=== PATIENT | male | born 1945 | race Caucasian/White ===

== ENCOUNTER 2020-02-24 06:28 | Inpatient (IN) | payer MEDICARE, BC ==
[~2020-02-24] VITALS: Ht 175.3 cm; Wt 83.3 kg
--- NOTE | 2020-02-24 06:35 | NUR ---
[facility] CALLED @ 0635 Addendum: 02/24/20 at 0738 by KAHLIL PTS GLASSES AND OTHER BELONGINS GIVEN TO PTS .
[2020-02-24] MEDS ORDERED: ATORVASTATIN 80 MG TABLET PO STA (06:42)
[2020-02-24] MEDS ORDERED: ASCO500T56 PO (06:46)
[2020-02-24] MEDS ORDERED: LISI-167 PO (06:46)
[2020-02-24] MEDS ORDERED: FISH OIL (06:46)
[2020-02-24] MEDS ORDERED: ASPI-515 PO (06:46)
[2020-02-24] MEDS ORDERED: ATOR20TA PO (06:46)
[2020-02-24] MEDS ORDERED: ERGO500017 PO (06:46)
[2020-02-24 06:51] LABS: MEAN CORPUSCULAR HEMOGLOBIN 31.9 pg (27.5-34.5)
[2020-02-24 06:55] LABS: MEAN CORPUSCULAR HGB CONC 32.8 g/dL (33.2-36.2); MEAN PLATELET VOLUME 8.8 fL (7.4-10.4); PLATELET COUNT 198 x10^3/uL (130-400); RED BLOOD COUNT 3.95 x10^6/uL (4.38-5.82)
--- NOTE | 2020-02-24 06:55 | NUR ---
REPORT GIVEN TO MARITZA WASHINGTON
--- NOTE | 2020-02-24 06:57 | NUR ---
REPORT RECEIVED, CARE ASSUMED. PT SITTING UP ON GURNEY, NO ACUTE DISTRESS NOTED. PAIN 2/10 "WITH DEEP INHALATION" SB PER MONITOR. AUTO BP AND PULSE OX IN PLACE. PTS TRESA [phone] MACKAY AT BEDSIDE TO [place] PT.
[2020-02-24] MEDS ORDERED: SODIUM CHLORIDE FLUSH 10ML SYR IVF ONE (07:00)
[2020-02-24] MEDS ORDERED: PLEASE ENTER ALLERGIES MC SCH (07:00)
[2020-02-24 07:03] LABS: ALBUMIN 3.1 g/dL (3.4-5.0); ANION GAP 4 mmol/L (5-15); CALCIUM 7.9 mg/dL (8.5-10.1); CHLORIDE 106 mmol/L (98-107); CREATININE 0.82 mg/dL (0.7-1.3)
[2020-02-24] MEDS ORDERED: LIDOCAINE 2%, 20ML ONE (07:11)
[2020-02-24] MEDS ORDERED: MIDAZOLAM 1 MG/ML, 5ML ONE (07:11)
[2020-02-24] MEDS ORDERED: BIVALIRUDIN 250 MG ONE (07:11)
[2020-02-24] MEDS ORDERED: HEPARIN 1,000 UNITS/ML, 10ML ONE (07:11)
[2020-02-24] MEDS ORDERED: VERAPAMIL 2.5 MG/ML, 2ML ONE (07:11)
[2020-02-24] MEDS ORDERED: TICAGRELOR 90 MG TABLET ONE (07:11)
[2020-02-24] MEDS ORDERED: FENTANYL PF 100 MCG/2ML ONE (07:11)
[2020-02-24 07:17] LABS: BASOPHILS # (AUTO) 0.01 x10^3/uL (0-0.1); BASOPHILS % (AUTO) 0 % (0-1); EOSINOPHILS # (AUTO) 0.11 x10^3/uL (0-0.4); EOSINOPHILS % (AUTO) 1 % (1-7); LYMPHOCYTES # (AUTO) 0.67 x10^3/uL (1-3.4); LYMPHOCYTES % (AUTO) 6 % (22-44); MD SCAN; MONOCYTES % (AUTO) 15 % (2-9); NEUTROPHILS # (AUTO) 8.07 x10^3/uL (1.8-6.8); NEUTROPHILS % (AUTO) 77 % (42-75)
--- NOTE | 2020-02-24 07:19 | NUR ---
CONSENT SIGNED BY PT AFTER EXPLAINATION/BENEFITS/RISKS EXPLAINED BY DR MACKAY.
--- NOTE | 2020-02-24 07:28 | NUR ---
PT TO GLOBAL PRESIDENT.
[2020-02-24] MEDS ORDERED: SODIUM CHLORIDE 0.9% 1,000 ML IV SCH (07:58)
[2020-02-24] MEDS ORDERED: MORPHINE SULFATE 4 MG/ML, 1ML ONE (09:27)
[2020-02-24] MEDS ORDERED: KETOROLAC 30 MG/1 ML ONE (09:30)
[2020-02-24] MEDS ORDERED: MORPHINE SULFATE 4 MG/ML, 1ML IVPush ONE (09:30)
[2020-02-24] MEDS ORDERED: KETOROLAC 30 MG/1 ML IVPush ONE (09:30)
[2020-02-24] MEDS ORDERED: MAALOX/HYOSCYAMINE/LIDOCAINE 45 ML BTL PO ONE (09:30)
[2020-02-24] MEDS ORDERED: ACETAMINOPHEN 325 MG TABLET PO PRN (11:00)
[2020-02-24] MEDS ORDERED: KETOROLAC 30 MG/1 ML IV PRN (11:00)
[2020-02-24] MEDS ORDERED: morphine SULFATE 10 MG/ML, 1ML IVPush PRN (11:00)
[2020-02-24] MEDS ORDERED: PROMETHAZINE 25 MG/ML, 1ML IM PRN (11:00)
[2020-02-24] MEDS ORDERED: LABETALOL 5MG/ML, 20ML IVPush PRN (11:00)
[2020-02-24] MEDS: HEPARIN 5,000 UNITS/ML, 1ML SQ SCH ×2 (11:00→20:58)
[2020-02-24] MEDS ORDERED: ONDANSETRON 2MG/ML, 2ML IVPush PRN (11:00)
[2020-02-24] MEDS ORDERED: ERGOCALCIFEROL 50,000 UNIT CAPSULE PO SCH (11:00)
[2020-02-24] MEDS ORDERED: hydrALAzine 20 MG/ML, 1ML IVPush PRN (11:00)
[2020-02-24 14:00] VITALS: BP 128/70
[2020-02-24] MEDS ORDERED: OMNIPAQUE 350 MG/ML, 75ML BOTTLE ONE (16:19)
[2020-02-24] MEDS ORDERED: OXYcodone/APAP 5/325MG TABLET PO PRN (17:00)
[2020-02-24 20:55] VITALS: BP 110/77
[2020-02-24] MEDS ORDERED: ATORVASTATIN 20 MG TABLET PO SCH (21:00)
[2020-02-25 03:12] VITALS: BP 113/72
[2020-02-25] MEDS: HEPARIN 5,000 UNITS/ML, 1ML SQ SCH ×2 (04:00→11:36)
[2020-02-25 06:29] LABS: MEAN CORPUSCULAR HEMOGLOBIN 32.2 pg (27.5-34.5); MEAN CORPUSCULAR HGB CONC 33.7 g/dL (33.2-36.2); MEAN PLATELET VOLUME 9.4 fL (7.4-10.4); PLATELET COUNT 197 x10^3/uL (130-400); RED BLOOD COUNT 4.21 x10^6/uL (4.38-5.82); RED CELL DISTRIBUTION WIDTH 13.1 % (9.4-14.8)
[2020-02-25 06:43] LABS: ANION GAP 4 mmol/L (5-15); CALCIUM 8.9 mg/dL (8.5-10.1); CHLORIDE 106 mmol/L (98-107)
[2020-02-25 06:48] LABS: HCT (SEDRATE) 40.8 % (39.2-51.8)
[2020-02-25 06:51] LABS: ALANINE AMINOTRANSFERASE 32 U/L (12-78); ALKALINE PHOSPHATASE 52 U/L (45-117); BILIRUBIN,TOTAL 1.1 mg/dL (0.2-1.0); CREATININE 0.87 mg/dL (0.7-1.3); TOTAL PROTEIN 6.8 g/dL (6.4-8.2)
[2020-02-25 07:08] LABS: BASOPHILS # (AUTO) 0.02 x10^3/uL (0-0.1); BASOPHILS % (AUTO) 0 % (0-1); EOSINOPHILS # (AUTO) 0.02 x10^3/uL (0-0.4); EOSINOPHILS % (AUTO) 0 % (1-7); LYMPHOCYTES # (AUTO) 0.83 x10^3/uL (1-3.4); LYMPHOCYTES % (AUTO) 7 % (22-44); MD SCAN; MONOCYTES % (AUTO) 18 % (2-9); NEUTROPHILS # (AUTO) 8.54 x10^3/uL (1.8-6.8); NEUTROPHILS % (AUTO) 74 % (42-75)
[2020-02-25 08:06] VITALS: BP 136/84
[2020-02-25] MEDS ORDERED: LISINOPRIL 10 MG TABLET PO SCH (09:00)
[2020-02-25] MEDS ORDERED: ASPIRIN 81 MG TABLET EC PO SCH (09:00)
== END 2020-02-25 12:45 | disposition home or self-care (01) | DRG 287 ==
LOC: ED 06:43 → 5SO 07:15 → 4NW 12:59
PROVIDERS: ADMIT Internal Medicine Cardiovascular Disease; ATTEND Family Medicine
PROC: 4A023N7 Measurement of Cardiac Sampling and Pressure, Left Heart, Percutaneous Approach (ICD-10-PCS; principal; 2020-02-24)
PROC: B2111ZZ Fluoroscopy of Multiple Coronary Arteries using Low Osmolar Contrast (ICD-10-PCS; 2020-02-24)
PROC: B2151ZZ Fluoroscopy of Left Heart using Low Osmolar Contrast (ICD-10-PCS; 2020-02-24)
DX: R07.89 Other chest pain (principal); D64.9 Anemia, unspecified; D72.829 Elevated white blood cell count, unspecified; E78.5 Hyperlipidemia, unspecified; I10 Essential (primary) hypertension; I35.8 Other nonrheumatic aortic valve disorders; Z20.828 Contact with and (suspected) exposure to other viral communicable diseases; Z82.49 Family history of ischemic heart disease and other diseases of the circulatory system; Z85.46 Personal history of malignant neoplasm of prostate; Z92.3 Personal history of irradiation; Z91.018 Allergy to other foods; Z79.82 Long term (current) use of aspirin; Z79.4 Long term (current) use of insulin; Z79.899 Other long term (current) drug therapy; Z87.891 Personal history of nicotine dependence; R73.9 Hyperglycemia, unspecified
CPT/HCPCS: 36415; 71045; 71260; 80048; 80053; 82040; 83036; 84145; 84484; 85025; 85379; 85651; 86140; 87635; 93005; 93306; 93458; 96374; 96375; 99156; 99285; C1769; C1894; G0378; J0583; J1644; J1885; J2250; J3010; Q9967; J2270